=== PATIENT | female | born 1925 | race Caucasian/White ===

== ENCOUNTER 2017-03-22 21:03 | Observation (INO) | payer OTHER, MEDICARE ==
[~2017-03-22] VITALS: Ht 165.1 cm; Wt 43.9 kg
[~2017-03-22 21:03] MED LIST: ALDACTONE25 MG PO; ALLERGY RELIEF1 EAC1 PO; ANTIVERT25 MG PO; ASPIRIN81 M1 PO; ATIVAN0.5 MG PO; Aldactone PO; B12 HEALTH1000 MCG/1 PO; BENADRYL25 MG PO; BENADRYL50 MG/ML IM; Benadryl PO; CALCIUM CARBO1000 MG PO; FERROUS SULFAT325 MG PO; LORAZEPAM0.5 MG PO; PROTONIX40 MG PO; Protonix PO; SPIRONOLACTONE25 MG PO; TUMS ULTRA1000 MG PO; TYLENOL REGULA325 MG PO; VITAMIN B-12500 MC2 PO; VITAMIN B-12500 MC4 PO; VITAMIN D1000 UNIT PO; VITAMIN D31000 UNIT PO; WOMEN'S ONE DA1 EACH PO
[2017-03-22 23:03] LABS: EOSINOPHIL (%) 3.2 % (0-5); EOSINOPHIL COUNT 0.2 K/uL (0-0.3); HEMATOCRIT 38.5 % (36.0-46.0); IMMATURE GRANULOCYTE (%) 0.7 % (0.0-0.7); INSTRUMENT ABS NEUTROPHIL CT 4.1 K/uL; LYMPHOCYTE COUNT 0.9 K/uL (1.0-2.8); MCHC 32.2 G/DL (30.0-36.0); MEAN PLAT.VOLUME 9.8 uM^3 (9.5-12.4); MONOCYTE (%) 10.4 % (3-12); MONOCYTE COUNT 0.6 K/uL (0-0.8); NEUTROPHIL (%) 69.7 % (45-76); NEUTROPHIL COUNT 4.1 K/uL (1.8-6.4); PLATELET COUNT 196 K/uL (156-360); RBC DIS.WIDTH-CV 13.9 % (11.8-14.6); RBC DIS.WIDTH-SD 47.7 % (39-53); RED BLOOD COUNT 4.14 M/uL (3.80-5.20); WHITE BLOOD COUNT 5.9 K/uL (4.1-10.2)
[2017-03-22 23:11] LABS: CHLORIDE 103 mEq/L (99-109); POTASSIUM 3.9 mEq/L (3.7-5.4); SODIUM 139 mEq/L (136-147)
[2017-03-22 23:13] LABS: GLUCOSE 106 mg/dL (70-99)
[2017-03-22 23:15] LABS: ANION GAP 6 MEQ/L (2-14)
[2017-03-22 23:17] LABS: GFR ESTIMATE (CALCULATED) 50 mL/min/
[2017-03-22 23:18] LABS: UREA NITROGEN (BUN) 22 mg/dL (9-23)
[2017-03-22 23:19] LABS: CREATINE KINASE 36 IU/L (1-294)
[2017-03-22 23:27] LABS: TROP-I INTERPRETATION NEGATIVE; TROPONIN-I < 0.01 ng/mL (0.0-0.30)
[2017-03-23 01:17] LABS: ADD MIUA? YES; BILIRUBIN NEGATIVE; BLOOD NEGATIVE; COLOR YELLOW ((YELLOW)); GLUCOSE (STRIP) NEGATIVE; KETONES NEGATIVE; LEUKOCYTES SMALL; NITRITE NEGATIVE; PROTEIN (STRIP) NEGATIVE; SPECIFIC GRAVITY 1.013 (1.000-1.030); UROBILINOGEN 0.2 MG/DL (0.2-1.0)
[2017-03-23 01:21] LABS: BACTERIA RARE /HPF; EPITHELIAL CELLS NONE SEEN /HPF; MUCUS TRACE /LPF; RED BLOOD CELLS 0-5 /HPF (0-5); UCUL ADDED? NO
[2017-03-23 04:42] VITALS: BP 161/78
[2017-03-23 07:40] VITALS: BP 165/71
[2017-03-23] MEDS ORDERED: MACROBID100 MG PO (09:50)
== END 2017-03-23 10:33 | disposition home or self-care (01) ==
LOC: EME → EDBD 21:03 → EDOF 03-23 03:10 → 5WEST 03-23 04:25
PROVIDERS: Emergency Medicine
DX: N39.0 Urinary tract infection, site not specified (principal); I10 Essential (primary) hypertension; Z86.73 Personal history of transient ischemic attack (TIA), and cerebral infarction without residual deficits; F03.90 Unspecified dementia, unspecified severity, without behavioral disturbance, psychotic disturbance, mood disturbance, and anxiety; Z66 Do not resuscitate; R55 Syncope and collapse
CPT/HCPCS: 70450; 71020; 80048; 81003; 82550; 84484; 85025; 87077; 87086; 87186; 93005; 99281; 99285; G0378; J0696; J1644; J7030; J7050